=== PATIENT | male | born 1990 | race Caucasian/White ===

== ENCOUNTER 2019-12-29 01:29 | Emergency (ER) | payer BC ==
[2019-12-29] MEDS ORDERED: MORPHINE 4 MG/ML SYR ONE (02:12)
[2019-12-29] MEDS ORDERED: ONDANSETRON 4 MG/2 ML VIAL ONE (02:12)
[2019-12-29 02:34] LABS: Protime INR 1.09
[2019-12-29 02:35] LABS: Absolute Lymphocytes (CBC) 1.4 K/uL (0.7-4.9); Basophils % 0.6 % (0-1.3); Hematocrit 40.6 % (39.6-49.0); Lymphocytes % 16.8 % (15.3-44.8); MPV 8.7 fL (7.6-11.3); RBC Red Blood Cell Count 4.41 M/uL (4.33-5.43)
[2019-12-29 02:45] LABS: ALT/SGPT 98 U/L (12-78); AST/SGOT 38 U/L (15-37); Albumin 3.5 g/dL (3.4-5.0); Alkaline Phosphatase 83 U/L (45-117); BUN Blood Urea Nitrogen 10 mg/dL (7-18); Bicarbonate 26 mmol/L (21-32); Bilirubin Direct < 0.1 mg/dL (0-0.2); Bilirubin Total 0.3 mg/dL (0.2-1.0); Glucose Level 174 mg/dL (74-106); Magnesium 2.1 mg/dL (1.8-2.4); Potassium 3.9 mmol/L (3.5-5.1); Protein, Total 7.8 g/dL (6.4-8.2); Sodium Level 139 mmol/L (136-145); Troponin (Emerg Dept Use Only) < 0.02 ng/mL (0.0-0.045)
[2019-12-29 02:56] LABS: NT PRO-BNP < 5 pg/mL (<125)
[2019-12-29 03:26] LABS: Urine Blood TRACE (NEG); Urine Glucose TRACE (NEG); Urine Protein NEGATIVE (NEG)
[2019-12-29 03:38] LABS: Barbiturates NEGATIVE (NEGATIVE); Benzodiazepines NEGATIVE (NEGATIVE); Cocaine NEGATIVE (NEGATIVE); METHAMPHETAM NEGATIVE (NEGATIVE); Methadone NEGATIVE (NEGATIVE); Opiates POSITIVE (NEGATIVE); Phencyclidine NEGATIVE (NEGATIVE); THC Cannibis NEGATIVE (NEGATIVE)
--- NOTE | 2019-12-29 05:15 | ER ---
Nurse's Notes [facility] Name: Krishna Egan Age: 29 yrs Sex: Male : 1990 Arrival Date: 12/29/2019 Time: 01:29 Bed 17 Private MD: Krunal Castellanos T Diagnosis: Chest pain, unspecified;Leg Pain Presentation: 12/28 01:40 Acuity: DELMAR 3 sg 01:40 Chief complaint: Patient states: pt complaining of numbness and pain to the lower sg extremities, also complaining of chest pain and tightness that began last night. Coronavirus screen: Client denies travel out of the [place] in the last 14 days. Ebola Screen: Patient negative for fever greater than or equal to 101.5 degrees Fahrenheit, and additional compatible Ebola Virus Disease symptoms Patient denies exposure to infectious person. Patient denies travel to an Ebola-affected area in the 21 days before illness onset. No symptoms or risks identified at this time. Initial Sepsis Screen: Does the patient meet any 2 criteria? HR > 90 bpm. Does the patient have a suspected source of infection? No. Patient's initial sepsis screen is negative. Risk Assessment: Do you want to hurt yourself or someone else? Patient reports no desire to harm self or others. Onset of symptoms was December 29, 2019. Care prior to arrival: None. Transition of care: patient was not received from another setting of care. 01:40 Method Of Arrival: Ambulatory sg Historical: - Allergies: 02:01 NSAIDS; mg2 02:01 Benadryl; mg2 02:01 Aspirin; mg2 - Home Meds: 01:57 candesartan 32 mg oral tab 1 tab once daily [Active]; mg2 - PMHx: 01:57 Hypertension; mg2 - Immunization history:: Flu vaccine status is unknown. - Social history:: Smoking status: Patient denies any tobacco usage or history of. Patient/guardian denies using alcohol, street drugs, IV drugs. Screenin:55 Abuse screen: Denies threats or abuse. Denies injuries from another. Nutritional mg2 screening: No deficits noted. Tuberculosis screening: No symptoms or risk factors identified. Fall Risk IV access (20 points). Assessment: 01:55 General: Appears in no apparent distress. comfortable, Behavior is calm, cooperative. mg2 Pain: Complains of pain in chest Pain does not radiate. Quality of pain is described as aching, Pain began gradually, 2-3 days ago. Neuro: Level of Consciousness is awake, alert, obeys commands, Oriented to person, place, time, situation. Cardiovascular: Capillary refill < 3 seconds Patient's skin is warm and dry. Respiratory: Airway is patent Respiratory effort is even, unlabored, Respiratory pattern is regular, symmetrical. GI: No signs and/or symptoms were reported involving the gastrointestinal system. : No signs and/or symptoms were reported regarding the genitourinary system. EENT: No signs and/or symptoms were reported regarding the EENT system. Derm: Skin is intact, is healthy with good turgor. Musculoskeletal: Circulation, motion, and sensation intact. Capillary refill < 3 seconds. 03:00 Reassessment: Patient appears in no apparent distress at this time. Patient and/or mg2 family updated on plan of care and expected duration. Pain level reassessed. Patient is alert, oriented x 3, equal unlabored respirations, skin warm/dry/pink. 04:23 Reassessment: Patient appears in no apparent distress at this time. ultrasound at [facility] [place]. Patient denies pain at this time. Patient states feeling better. Patient states symptoms have improved. 05:31 Reassessment: Patient denies pain at this time. Patient states feeling better. Patient mg2 states symptoms have improved. Vital Signs: 01:45 BP 169 / 99; Pulse 94; Resp 22; Temp 98.6; Pulse Ox 97% on R/A; Weight 176.22 kg; mg2 Height 5 ft. 10 in. (177.80 cm); 02:07 Weight 176.22 kg (M); Height 5 ft. 10 in. (177.80 cm); sg 02:56 BP 121 / 71; Pulse 84; Resp 18; Pulse Ox 98% on R/A; mg2 04:23 BP 128 / 73; Pulse 68; Resp 18; Pulse Ox 98% on R/A; Pain 0/10; mg2 05:31 BP 122 / 70; Pulse 69; Resp 18; Temp 98.5; Pulse Ox 100% on R/A; Pain 0/10; mg2 02:07 Body Mass Index 55.74 (176.22 kg, 177.80 cm) ED Course: 01:29 Patient arrived in ED. am2 01:30 Krunal Castellanos MD is Private Physician. am2 01:40 Triage completed. sg 01:41 Arm band placed on. sg 01:43 Derrick Delgado, MIKAYLA is Primary Nurse. mg2 01:47 Tyree Ortiz MD is Attending Physician. [facility] 01:55 No provider procedures requiring assistance completed. Inserted saline lock: 20 gauge mg2 in left hand, using aseptic technique. Blood collected. 01:57 EKG done, by ED staff, reviewed by Tyree Ortiz MD pt had to be shaved for accurate sg EKG lead placement, EKG repeated. 02:07 Patient has correct armband on for positive identification. Pulse ox on. NIBP on. Door mg2 closed. Warm blanket given. 02:08 Patient maintains SpO2 saturation greater than 95% on room air. mg2 02:13 XRAY Chest (1 view) In Process Unspecified. EDMS 03:47 CT Chest For PE Angio In Process Unspecified. EDMS 04:47 Extremity Venous Uni Ltd In Process Unspecified. EDMS 05:31 IV discontinued, intact, bleeding controlled, No redness/swelling at site. Pressure mg2 dressing applied. Administered Medications: 02:03 Drug: morphine 4 mg Route: IVP; Site: left hand; mg2 02:57 Follow up: Response: No adverse reaction; Marked relief of symptoms; RASS: Alert and mg2 Calm (0) 02:03 Drug: Zofran (Ondansetron) 4 mg Route: IVP; Site: left hand; mg2 02:57 Follow up: Response: No adverse reaction; Marked relief of symptoms mg2 Outcome: 05:14 Discharge ordered by . 7 05:31 Discharged to home ambulatory. mg2 05:31 Condition: stable 05:31 Discharge instructions given to patient, Instructed on discharge instructions, follow up and referral plans. Demonstrated understanding of instructions, follow-up care. 05:32 Patient left the ED. mg2 Signatures: Dispatcher [employer] EDMS Sean Mathur RN RN [place] 2 Derrick Delgado RN RN mg2 Tyree Ortiz MD MD 7 Corrections: (The following items were deleted from the chart) 02:07 01:45 BP 169 / 99; Pulse 94bpm; Resp 22bpm; Pulse Ox 97% RA; Temp 98.6F; 174.63 kg; mg2 Height 5 ft. 10 in.; BMI: 55.2; mg2 04:24 04:23 Reassessment: Patient appears in no apparent distress at this time. Patient mg2 denies pain at this time. Patient states feeling better. Patient states symptoms have improved. mg2
--- NOTE | 2019-12-29 05:16 | EDPHYS ---
Physician Documentation [facility] Name: Krishna Egan Age: 29 yrs Sex: Male : 1990 Arrival Date: 12/29/2019 Time: 01:29 Bed 17 Private MD: Krunal Castellanos T ED Physician Tyree Ortiz HPI: 12/28 02:37 This 29 yrs old Male presents to ER via Ambulatory with complaints of Chest mh7 Pain, Left Thigh Pain. 02:37 The patient or guardian reports chest pain that is located primarily in the anterior mh7 chest wall, left. The pain does not radiate. 02:38 Associated signs and symptoms: Pertinent positives: lower extremity pain, Pertinent mh7 negatives: abdominal pain, cough, diaphoresis, dizziness, headache, lower extremity swelling, lightheadedness, nausea, near syncope, palpitations, recent travel, shortness of breath, syncope, vomiting. The chest pain is described as tightness. Duration: The patient or guardian reports multiple episodes, that are intermittent, that wax and wane, with no pattern. Modifying factors: The symptoms are alleviated by nothing. the symptoms are aggravated by nothing. Severity of pain: At its worst the pain was moderate 2 day(s) ago, in the emergency department the pain has improved mildly. Historical: - Allergies: 02:01 NSAIDS; mg2 02:01 Benadryl; mg2 02:01 Aspirin; mg2 - Home Meds: 01:57 candesartan 32 mg oral tab 1 tab once daily [Active]; mg2 - PMHx: 01:57 Hypertension; mg2 - Immunization history:: Flu vaccine status is unknown. - Social history:: Smoking status: Patient denies any tobacco usage or history of. Patient/guardian denies using alcohol, street drugs, IV drugs. ROS: 02:38 Constitutional: Negative for fever, chills, and weight loss, Eyes: Negative for injury, mh7 pain, redness, and discharge, ENT: Negative for injury, pain, and discharge, Neck: Negative for injury, pain, and swelling, Respiratory: Negative for shortness of breath, cough, wheezing, and pleuritic chest pain, Abdomen/GI: Negative for abdominal pain, nausea, vomiting, diarrhea, and constipation, Back: Negative for injury and pain, : Negative for injury, bleeding, discharge, and swelling, Skin: Negative for injury, rash, and discoloration, Neuro: Negative for headache, weakness, numbness, tingling, and seizure, Psych: Negative for depression, anxiety, suicide ideation, homicidal ideation, and hallucinations, Allergy/Immunology: Negative for hives, rash, and allergies, Endocrine: Negative for neck swelling, polydipsia, polyuria, polyphagia, and marked weight changes, Hematologic/Lymphatic: Negative for swollen nodes, abnormal bleeding, and unusual bruising. Exam: 02:40 Constitutional: This is a well developed, well nourished patient who is awake, alert, mh7 and in no acute distress. Head/Face: Normocephalic, atraumatic. Eyes: Pupils equal round and reactive to light, extra-ocular motions intact. Lids and lashes normal. Conjunctiva and sclera are non-icteric and not injected. Cornea within normal limits. Periorbital areas with no swelling, redness, or edema. Neck: Trachea midline, no thyromegaly or masses palpated, and no cervical lymphadenopathy. Supple, full range of motion without nuchal rigidity, or vertebral point tenderness. No Meningismus. Chest/axilla: Normal chest wall appearance and motion. Nontender with no deformity. No lesions are appreciated. Cardiovascular: Regular rate and rhythm with a normal S1 and S2. No gallops, murmurs, or rubs. Normal PMI, no JVD. No pulse deficits. Respiratory: Lungs have equal breath sounds bilaterally, clear to auscultation and percussion. No rales, rhonchi or wheezes noted. No increased work of breathing, no retractions or nasal flaring. Abdomen/GI: Soft, non-tender, with normal bowel sounds. No distension or tympany. No guarding or rebound. No evidence of tenderness throughout. Back: No spinal tenderness. No costovertebral tenderness. Full range of motion. Skin: Warm, dry with normal turgor. Normal color with no rashes, no lesions, and no evidence of cellulitis. MS/ Extremity: Pulses equal, no cyanosis. Neurovascular intact. Full, normal range of motion. Neuro: Awake and alert, GCS 15, oriented to person, place, time, and situation. Cranial nerves II-XII grossly intact. Motor strength 5/5 in all extremities. Sensory grossly intact. Cerebellar exam normal. Normal gait. Psych: Awake, alert, with orientation to person, place and time. Behavior, mood, and affect are within normal limits. Vital Signs: 01:45 BP 169 / 99; Pulse 94; Resp 22; Temp 98.6; Pulse Ox 97% on R/A; Weight 176.22 kg; mg2 Height 5 ft. 10 in. (177.80 cm); 02:07 Weight 176.22 kg (M); Height 5 ft. 10 in. (177.80 cm); sg 02:56 BP 121 / 71; Pulse 84; Resp 18; Pulse Ox 98% on R/A; mg2 04:23 BP 128 / 73; Pulse 68; Resp 18; Pulse Ox 98% on R/A; Pain 0/10; mg2 05:31 BP 122 / 70; Pulse 69; Resp 18; Temp 98.5; Pulse Ox 100% on R/A; Pain 0/10; mg2 02:07 Body Mass Index 55.74 (176.22 kg, 177.80 cm) sg MDM: 01:55 Patient medically screened. [facility] 05:12 Differential diagnosis: acute myocardial infarction, acute pericarditis, anxiety, [facility] coronary artery disease chest wall pain, congestive heart failure costochondritis, myocarditis, pleurisy, pneumonia, pneumothorax, pulmonary embolus. HEART Score: History: Slightly Suspicious (0), ECG: Non specific repolarization disturbance / LBTB / PM (1), Age: < or = 45 years (0), Risk Factors: 1 or 2 risk factors (1), [Hypertension] Troponin: < or = 1 x Normal Limit (0), Total Score = 2. Data reviewed: vital signs, nurses notes, lab test result(s), cardiac enzymes, CBC, electrolytes, urinalysis, urine drug screen, EKG, radiologic studies, CT scan, plain films. Data interpreted: Pulse oximetry: on room air is 98 %. Interpretation: normal. Counseling: I had a detailed discussion with the patient and/or guardian regarding: the historical points, exam findings, and any diagnostic results supporting the discharge/admit diagnosis, lab results, radiology results, the need for outpatient follow up, to return to the emergency department if symptoms worsen or persist or if there are any questions or concerns that arise at home. Response to treatment: the patient's symptoms have resolved after treatment, the patient's blood pressure is in an acceptable range, mental status has returned to baseline, the patient no longer shows bradycardia, the patient is not short of breath, the patient is not tachycardic, the patient's pain is gone, the patient's temperature has normalized, the patient is now symptom free, patient is well hydrated. 12/28 01:56 Order name: Basic Metabolic Panel; Complete Time: 03:03 [facility] 12/28 01:56 Order name: CBC with Diff; Complete Time: 02:55 [facility] 12/28 01:56 Order name: LFT's; Complete Time: 03:03 [facility] 12/28 01:56 Order name: Magnesium; Complete Time: 03:03 [facility] 12/28 01:56 Order name: NT PRO-BNP; Complete Time: 03:03 [facility] 12/28 01:56 Order name: PT-INR; Complete Time: 02:55 [facility] 12/28 01:56 Order name: Troponin (emerg Dept Use Only); Complete Time: 03:03 [facility] 12/28 01:56 Order name: XRAY Chest (1 view) [facility] 12/28 02:59 Order name: US Extremity Venous Unilateral Ltd [facility] 12/28 03:00 Order name: Extremity Venous Uni Ltd [facility] 12/28 03:04 Order name: CT Chest For PE Angio [facility] 12/28 03:05 Order name: UDS; Complete Time: 04:21 [facility] 12/28 03:19 Order name: Urine Dipstick--Ancillary (enter results); Complete Time: 04:21 ds4 12/28 04:48 Order name: CPK; Complete Time: 05:10 mg2 12/28 01:56 Order name: EKG; Complete Time: 01:57 [facility] 12/28 01:56 Order name: Cardiac monitoring; Complete Time: 01:57 [facility] 12/28 01:56 Order name: EKG - Nurse/Tech; Complete Time: 01:57 [facility] 12/28 01:56 Order name: IV Saline Lock; Complete Time: 01:57 [facility] 12/28 01:56 Order name: Labs collected and sent; Complete Time: 01:57 [facility] 12/28 01:56 Order name: O2 Per Protocol; Complete Time: 01:57 [facility] 12/28 01:56 Order name: O2 Sat Monitoring; Complete Time: 01:57 [facility] 12/28 03:05 Order name: Urine Dipstick-Ancillary (obtain specimen); Complete Time: 03:18 [facility] Administered Medications: 02:03 Drug: morphine 4 mg Route: IVP; Site: left hand; mg2 02:57 Follow up: Response: No adverse reaction; Marked relief of symptoms; RASS: Alert and mg2 Calm (0) 02:03 Drug: Zofran (Ondansetron) 4 mg Route: IVP; Site: left hand; mg2 02:57 Follow up: Response: No adverse reaction; Marked relief of symptoms mg2 Disposition: 12/29/19 05:14 Discharged to Home. Impression: Chest pain, unspecified, Leg Pain. - Condition is Stable. - Discharge Instructions: Leg Cramps, Nonspecific Chest Pain, Prqd-[id number]. - Medication Reconciliation Form, Thank You Letter, Antibiotic Education, Prescription Opioid Use form. - Follow up: Private Physician; When: 1 - 2 days; Reason: Worsening of condition, Recheck today's complaints, Continuance of care, Re-evaluation by your physician. - Problem is new. - Symptoms have improved. Signatures: Dispatcher [employer] EDMS Derrick Delgado RN RN mg2 Tyree Ortiz MD MD mh7 Corrections: (The following items were deleted from the chart) 05:32 05:14 12/29/2019 05:14 Discharged to Home. Impression: Chest pain, unspecified; Leg mg2 Pain. Condition is Stable. Forms are Medication Reconciliation Form, Thank You Letter, Antibiotic Education, Prescription Opioid Use. Follow up: Private Physician; When: 1 - 2 days; Reason: Worsening of condition, Recheck today's complaints, Continuance of care, Re-evaluation by your physician. Problem is new. Symptoms have improved. [facility]
[2019-12-29 05:42] VITALS: BP 122/70; TEMP 98.5; O2SAT 100
--- NOTE | 2019-12-29 08:39 | RAD REPORT ---
EXAM DESCRIPTION: US - Extremity Venous Uni Ltd - 12/29/2019 4:47 am CLINICAL HISTORY: PAIN Leg swelling and edema. COMPARISON: No comparisons FINDINGS: Left lower extremity venous system was interrogated with Doppler technique. Normal flow, c ompressibility and augmentation was noted. There is no DVT present. IMPRESSION: No evidence of left lower extremity deep venous thrombosis.
--- NOTE | 2019-12-29 08:53 | RAD REPORT ---
EXAM DESCRIPTION: RAD - Chest Single View - 12/29/2019 2:12 am CLINICAL HISTORY: CHEST PAIN Chest pain. COMPARISON: No comparisons FINDINGS: Portable technique limits examination quality. The lungs are underinflated but grossly clear. The heart is normal in size. No displaced fractures. IMPRESSION: Underinflated lungs.
--- NOTE | 2019-12-29 10:43 | RAD REPORT ---
EXAM DESCRIPTION: CT chest angiography with intravenous contrast CLINICAL HISTORY: 29 years Male CHEST PAIN. TECHNIQUE: Following the administration of intravenous contrast, multiple high-resolution axial imag es of the chest were performed followed by sagittal and coronal reconstructed images. MIP images were not performed. The CT study is performed according to ALARA (as low as reasonably achievable) or ALA RA/IMAGE GENTLY, with automatic adjustment of mA and/or kV according to patient size. Performed on: 12/29/2019 at 3:16 AM COMPARISON: None FINDINGS: There is suboptimal contrast opacification of pulmonary arteries. No definite intra-andrew rial filling defects are identified to suggest acute or chronic pulmonary embolism. The thoracic aort a is normal in caliber and contour without evidence of aneurysm or dissection. The lungs are well expanded and are clear. There is no evidence of a pneumothorax. There are no pleur al effusions. The heart is normal in size. There is no pericardial effusion. There is no reflux of contrast into th e hepatic veins to suggest right heart strain.The RV/LV ratio is within normal limits. There is no evidence of hilar, mediastinal or axillary lymphadenopathy. No acute osseous abnormality is identified. The visualized upper abdominal structures are unremarkable. IMPRESSION: 1. Suboptimal contrast opacification of the pulmonary arteries on this examination. No d efinite CT evidence to suggest acute or chronic pulmonary embolism, aortic aneurysm or aortic dissect ion. 2. No evidence of acute intrathoracic disease. Electronically signed by: Lidya Dominguez DO 12/29/2019 4:09 AM FISCAL TECHNICIAN Due to temporary technical issues with the PACS/Fluency reporting system, reports are being signed by the in house radiologist without review as a courtesy to ensure prompt reporting. The interpreting r adiologist is fully responsible for the content of the report.
== END 2019-12-29 05:32 | disposition home or self-care (01) ==
LOC: ER 01:29
DX: M79.652 Pain in left thigh (principal); I10 Essential (primary) hypertension; Z88.6 Allergy status to analgesic agent; Z88.8 Allergy status to other drugs, medicaments and biological substances
CPT/HCPCS: 93005 ×2; 85025; 80048; 36415; 83735; 82550; 85610; 80076; 80307 ×8; 81003; 84484; 83880; 71275; 71045; 93971; 96375; 96374; 99284; Q9967; J2405